=== PATIENT | male | born 1970 | race Caucasian/White ===

== ENCOUNTER 2018-07-09 13:51 | Emergency (ER) | payer MEDICAID ==
[~2018-07-09] VITALS: Ht 167.6 cm; Wt 59.1 kg
[2018-07-09] MEDS ORDERED: ketorolac trometh inj. 60 MG/2 ML VIAL IM ONE (14:20)
[2018-07-09] MEDS ORDERED: HYDROcodone/acetaminophen 5mg/325mg tablet PO ONE (14:20)
[2018-07-09] MEDS ORDERED: TRAM50TA2 PO (14:47)
[2018-07-09 14:53] VITALS: BP 119/73
== END 2018-07-09 14:56 | disposition home or self-care (01) ==
LOC: ER 13:53
DX: G89.29 Other chronic pain (principal); M25.552 Pain in left hip; M87.852 Other osteonecrosis, left femur; F17.200 Nicotine dependence, unspecified, uncomplicated; Z98.890 Other specified postprocedural states
CPT/HCPCS: 73502; 96372; 99284; J1885

== ENCOUNTER 2018-07-26 09:26 | Emergency (ER) | payer MEDICAID ==
[~2018-07-26] VITALS: Ht 167.6 cm; Wt 58.2 kg
[2018-07-26 09:40] VITALS: BP 116/71
[2018-07-26] MEDS ORDERED: HYDR-3965 PO (11:49)
[2018-07-26] MEDS ORDERED: ketorolac trometh inj. 60 MG/2 ML VIAL IM ONE (11:50)
== END 2018-07-26 12:00 | disposition home or self-care (01) ==
LOC: ER 09:27
DX: G89.29 Other chronic pain (principal); M25.552 Pain in left hip; F17.200 Nicotine dependence, unspecified, uncomplicated; F12.90 Cannabis use, unspecified, uncomplicated; Z79.899 Other long term (current) drug therapy
CPT/HCPCS: 96372; 99283; J1885

== ENCOUNTER 2018-09-29 04:38 | Emergency (ER) | payer MEDICAID ==
[~2018-09-29] VITALS: Ht 167.6 cm; Wt 59.1 kg
[2018-09-29] MEDS ORDERED: ketorolac trometh. 30mg/ml inj. IM ONE (07:00)
[2018-09-29] MEDS ORDERED: morphine 4 MG/ML inj SYRINge IM ONE (08:30)
[2018-09-29 08:52] VITALS: BP 150/73
== END 2018-09-29 08:54 | disposition home or self-care (01) ==
LOC: ER 04:38
DX: G89.29 Other chronic pain (principal); M25.552 Pain in left hip; R60.0 Localized edema; F17.200 Nicotine dependence, unspecified, uncomplicated; F12.90 Cannabis use, unspecified, uncomplicated; Z98.890 Other specified postprocedural states
CPT/HCPCS: 73502; 96372; 99283; J1885; J2270